=== PATIENT | female | born 1955 | race Two or more races ===

== ENCOUNTER 2020-11-26 08:00 | Inpatient (IN) | payer OTHER ==
[~2020-11-26] VITALS: Ht 154.9 cm; Wt 95.3 kg
[2020-11-26] MEDS ORDERED: METFORMIN HCL500 M3 PO (10:41)
[2020-11-26] MEDS ORDERED: DICLOFENAC-MIS1 EAC3 PO (10:41)
[2020-11-26] MEDS ORDERED: DILTIAZEM ER60 MG PO (10:42)
[2020-11-26] MEDS ORDERED: ZESTRIL10 M1 PO (10:42)
[2020-11-26] MEDS ORDERED: GLIPIZIDE XL10 MG PO (10:42)
[2020-11-26] MEDS ORDERED: LIPITOR20 MG PO (10:43)
[2020-12-03] MEDS ORDERED: OXYC1TAB9 PO (06:39)
[2020-12-03] MEDS ORDERED: INTEGRA PLUS C1 EACH PO (06:39)
[2020-12-03] MEDS ORDERED: BACTRIM DS TAB1 EACH PO (06:39)
[2020-12-03] MEDS ORDERED: XARELTO10 MG PO (06:39)
== END 2020-12-03 17:13 | DRG 470 ==
LOC: EDUNIT# 08:00 → SURH 12-01 06:28 → O/R 12-01 06:28 → SURH 12-01 07:00
PROVIDERS: ADMIT Orthopaedic Surgery Sports Medicine; ATTEND Orthopaedic Surgery Sports Medicine
PROC: 3E0F7SF Introduction of Other Gas into Respiratory Tract, Via Natural or Artificial Opening (ICD-10-PCS; 2020-12-01)
PROC: 0SRD0J9 Replacement of Left Knee Joint with Synthetic Substitute, Cemented, Open Approach (ICD-10-PCS; principal; 2020-12-01 07:00)
DX: M17.12 Unilateral primary osteoarthritis, left knee (principal); Z20.822 Contact with and (suspected) exposure to COVID-19

== ENCOUNTER 2020-11-26 08:19 | Outpatient (CLI) | payer OTHER ==
[2020-11-26] MEDS ORDERED: METFORMIN HCL500 M3 PO (10:41)
[2020-11-26] MEDS ORDERED: DICLOFENAC-MIS1 EAC3 PO (10:41)
[2020-11-26] MEDS ORDERED: ZESTRIL10 M1 PO (10:42)
[2020-11-26] MEDS ORDERED: GLIPIZIDE XL10 MG PO (10:42)
[2020-11-26] MEDS ORDERED: DILTIAZEM ER60 MG PO (10:42)
[2020-11-26] MEDS ORDERED: LIPITOR20 MG PO (10:43)
== END 2020-11-26 15:22 | disposition home or self-care (01) ==
LOC: LAB 08:19
PROVIDERS: ATTEND Orthopaedic Surgery Sports Medicine
DX: D68.8 Other specified coagulation defects (principal)